=== PATIENT | female | born 1955 | race Caucasian/White ===

== ENCOUNTER 2017-08-23 12:41 | Emergency (ER) | payer OTHER ==
[2017-08-23] MEDS ORDERED: Lasix 40 MG/4 ML IV ONE (13:51)
--- NOTE | 2017-08-23 13:51 | ERPHSYRPT ---
- History of Present Illness Time Seen by Provider: 08/23/17 13:33 Source: patient, family Exam Limitations: no limitations Patient Subjective Stated Complaint: swelling to kathie lower ext Triage Nursing Assessment: to er c/o 4 + pitting edema to kathie le. PT has edeman noted up to kathie knee with redness and tightness noted kathie. No weaping noted and no open skin. pt reports mild increase in sob with exertion recently Physician History: The patient is a morbidly obese 61-year-old female with her complaining of increasing swelling in her lower legs for the past month. She has chronic edema of her lower extremities but it has been getting slightly worse over the past month. She was at the pain clinic this morning and they mention to her that because of the increased swelling, she needed to see her doctor. She called Dr. Carreon who was unable to see her today and was advised to come to the ER. She always has pain in her legs. They're always red. She has chronic back pain. She is unable to sleep in bed because of her chronic back pain. Her past medical history is significant for morbid obesity, chronic back pain, stasis dermatitis, GERD, and hypothyroidism Timing/Duration: week(s) (4), gradual onset Severity: severe Modifying Factors: Improves With: nothing Associated Symptoms: denies symptoms Allergies/Adverse Reactions: atropine sulfate [From Lomotil] Allergy (Verified 09/13/13 16:39) skin rash/hives diphenoxylate HCl [From Lomotil] Allergy (Verified 09/13/13 16:39) skin rash/hives fentanyl [From Duragesic] Allergy (Verified 09/13/13 16:39) skin rash/hives penicillin G Allergy (Verified 09/13/13 16:39) skin rash/hive Home Medications: Gabapentin [Neurontin] 1 - 2 tab PO QID 09/13/13 [History] Levothyroxine Sodium 88 Mcg [Synthroid 88 Mcg] 88 mcg PO DAILY 09/13/13 [ History] Oxycodone HCl/Acetaminophen [Percocet 7.5-325 mg Tablet] 1 each PO Q4-6HPRN PRN 05/29/16 [History] Paroxetine HCl [Paxil] 0 mg PO DAILY 09/04/16 [History] Naproxen 500 mg [Naprosyn 500 MG] 500 mg PO BID 08/20/17 [History] Omeprazole 20 MG [Prilosec 20 mg] 20 mg PO DAILY 08/20/17 [History] Tizanidine HCl 4 mg [Zanaflex 4 MG] 4 mg PO HS 08/20/17 [History] Hx Tetanus, Diphtheria Vaccination/Date Given: (unknown) Hx Influenza Vaccination/Date Given: No Hx Pneumococcal Vaccination/Date Given: No - Review of Systems Constitutional: No Fever, No Chills Eyes: No Symptoms Ears, Nose, & Throat: No Symptoms Respiratory: No Cough, No Dyspnea Cardiac: No Chest Pain, No Edema, No Syncope Abdominal/Gastrointestinal: No Abdominal Pain, No Nausea, No Vomiting, No Diarrhea Genitourinary Symptoms: No Dysuria Musculoskeletal: No Back Pain, No Neck Pain Skin: No Rash Neurological: No Dizziness, No Focal Weakness, No Sensory Changes Psychological: No Symptoms Endocrine: No Symptoms Hematologic/Lymphatic: No Symptoms Immunological/Allergic: No Symptoms All Other Systems: Reviewed and Negative - Past Medical History Pertinent Past Medical History: Yes Neurological History: Stroke Cardiac History: Myocardial Infarction ([place]), Hypertension Endocrine Medical History: Hypothyroidism Psycho-Social History: Depression Other Medical History: lumbago - Past Surgical History Past Surgical History: Yes Gastrointestinal: Cholecystectomy Musculoskeletal: Joint Replacement Female Surgical History: Hysterectomy, Section Other Surgical History: right knee replacement, gastric bypass, - Social History Smoking Status: Current every day smoker Exposure to second hand smoke: Yes Drug Use: none Patient Lives Alone: No - Nursing Vital Signs Nursing Vital Signs: Initial Vital Signs Temperature 97.8 F 08/23/17 13:09 Pulse Rate 81 08/23/17 13:09 Respiratory Rate 22 08/23/17 13:09 Blood Pressure 182/97 08/23/17 13:09 O2 Sat by Pulse Oximetry 99 08/23/17 13:09 Pain Scale Pain Intensity 10 - Physical Exam General Appearance: no apparent distress, alert Eye Exam: PERRL/EOMI, eyes nml inspection Ears, Nose, Throat Exam: normal ENT inspection, TMs normal, pharynx normal, moist mucous membranes Neck Exam: normal inspection, non-tender, supple, full range of motion Respiratory Exam: normal breath sounds, lungs clear, No respiratory distress Cardiovascular Exam: regular rate/rhythm, normal heart sounds, normal peripheral pulses Gastrointestinal/Abdomen Exam: other (obese) Pelvic Exam: not done Rectal Exam: not done Back Exam: normal inspection, normal range of motion, No CVA tenderness, No vertebral tenderness Extremity Exam: pedal edema (4+ bilateral lower legs with erythema c/w stasis dermatitis) Neurologic Exam: alert, oriented x 3, cooperative, normal mood/affect, nml cerebellar function, nml station & gait, sensation nml, No motor deficits Skin Exam: normal color, warm, dry, No rash Lymphatic Exam: No adenopathy SpO2 Interpretation: normal SpO2: 99 Oxygen Delivery: Room Air - Radiology Exams Chest X-ray Interpretation: Reviewed by me, Teleradiologist Report, Negative (per Dr Olivas) Ordered Tests: Active Orders 24 hr Category Date Time Status IV Insertion STAT Care 08/23/17 13:51 Active CHEST 2 VIEWS (PA AND LAT) Stat Exams 08/23/17 13:51 Completed BMP Stat Lab 08/23/17 14:15 Completed CBC W DIFF Stat Lab 08/23/17 14:15 Completed NT PRO BNP Stat Lab 08/23/17 14:15 Completed Medication Summary Discontinued Medications Generic Name Dose Route Start Last Admin Trade Name Freq PRN Reason Stop Dose Admin Furosemide 40 mg 08/23/17 13:51 08/23/17 14:12 Lasix 40 Mg/4 Ml IV 08/23/17 13:52 40 mg STAT ONE Administration Furosemide Confirm 08/23/17 14:11 Lasix 40 Mg/4 Ml Administered 08/23/17 14:12 Dose 40 mg .ROUTE .STK-MED ONE Oxycodone/Acetaminophen 1 tab 08/23/17 13:53 08/23/17 14:12 Percocet Tablet 5/325mg PO 08/23/17 13:54 1 tab STAT STA Administration Oxycodone/Acetaminophen Confirm 08/23/17 14:10 Percocet Tablet 5/325mg Administered 08/23/17 14:11 Dose 1 tab .ROUTE .STK-MED ONE Lab/Rad Data: Laboratory Result Diagrams 08/23/17 14:15 08/23/17 14:15 Laboratory Results 08/23/17 08/23/17 Range/Units 14:15 14:15 WBC 5.7 (4.0-10.5) K/mm3 RBC 4.42 (4.1-5.4) M/mm3 Hgb 15.7 (12.0-16.0) gm/dl Hct 47.6 H (35-47) % MCV 107.7 H (78-100) fl MCH 35.5 H (26-32) pg MCHC 33.0 (32-36) g/dl RDW 16.9 H (11.5-14.0) % Plt Count 48 L (150-450) K/mm3 MPV 11.5 H (6-9.5) fl Gran % 72.0 H (36.0-66.0) % Lymphocytes % 20.0 L (24.0-44.0) % Monocytes % 5.7 (0.0-12.0) % Eosinophils % 1.6 (0.00-5.0) % Basophils % 0.7 (0.0-0.4) % Basophils # 0.04 (0-0.4) Sodium 141 (136-145) mEq/L Potassium 4.2 (3.5-5.1) mEq/L Chloride 105 (98-107) mEq/L Carbon Dioxide 28.9 (21-32) mEq/L Anion Gap 11.7 (5-15) MEQ/L BUN 7 L (9-20) mg/dL Creatinine 1.07 (0.55-1.30) mg/dl Estimated GFR 55 ML/MIN Glucose 253 H (70-110) MG/DL Calcium 10.7 H (8.5-10.1) mg/dL NT-Pro-B Natriuret Pep 35 (0-125) pg/ml Slides for Path Review - Departure Time of Disposition: 15:43 Departure Disposition: Home Clinical Impression: Stasis dermatitis of both legs Condition: Stable Critical Care Time: No Referrals: DENNY CARREON [Primary Care Provider] - Additional Instructions: You have stasis dermatitis and edema of both legs. You were given furosemide 40 mg by IV in the ER. 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 Follow-up with Dr. Carreon on Saturday.
[2017-08-23] MEDS ORDERED: PERCOCET TABLET 5/325MG PO STA (13:53)
[2017-08-23] MEDS ORDERED: PERCOCET TABLET 5/325MG ONE (14:10)
[2017-08-23] MEDS ORDERED: Lasix 40 MG/4 ML ONE (14:11)
[2017-08-23 14:35] LABS: BASOPHIL % 0.7 % (0.0-0.4); Basophil (Absolute #) 0.04 (0-0.4); Eosinophil % 1.6 % (0.00-5.0); Eosinophil (Absolute #) 0.09 (0-0.5); Granulocyte Absolute (ANC) 4.07 (1.4-6.9); Hematocrit 47.6 % (35-47); Hemoglobin 15.7 gm/dl (12.0-16.0); Lymphocyte (Absolute #) 1.13 (1.0-4.6); Mean Cell Volume 107.7 fl (78-100); Mean Corpuscular Hemoglobin 35.5 pg (26-32); Mean Platelet Volume 11.5 fl (6-9.5); Monocyte (Absolute #) 0.32 (0.0-1.3); Monocytes % 5.7 % (0.0-12.0); Platelet Count 48 K/mm3 (150-450); Red Blood Count 4.42 M/mm3 (4.1-5.4); Red Cell Distribution Width 16.9 % (11.5-14.0); White Blood Count 5.7 K/mm3 (4.0-10.5)
--- NOTE | 2017-08-23 14:47 | XRAY ---
Indication: Edema. Comparison: None AP/lateral chest is clear. Heart and mediastinal structures within normal limits. Bony thorax intact with mild osteopenia and degenerative changes. Impression: Nonacute chest.
[2017-08-23 15:04] LABS: ANION GAP 11.7 MEQ/L (5-15); Calcium 10.7 mg/dL (8.5-10.1); Carbon Dioxide 28.9 mEq/L (21-32); Creatinine 1 1.07 mg/dl (0.55-1.30); Potassium 4.2 mEq/L (3.5-5.1)
[2017-08-23 16:26] VITALS: BP 108/72; PULSE 70; O2SAT 97
== END 2017-08-23 16:26 | disposition home or self-care (01) ==
LOC: ED 12:41
DX: I87.2 Venous insufficiency (chronic) (peripheral) (principal); Z79.899 Other long term (current) drug therapy; M54.9 Dorsalgia, unspecified
CPT/HCPCS: 36000; 36415; 71046; 80048; 83880; 85025; 96374; 99284; J1940; A9270-GY